=== PATIENT | male | born 1945 | race Caucasian/White ===

== ENCOUNTER → 2021-05-09 | Outpatient (CLI) | payer MEDICARE ==
--- NOTE | 2021-05-10 05:14 | MR ---
EXAMINATION TYPE: MR brain wo/w con DATE OF EXAM: 05/09/2021 COMPARISON: 03/03/2017 HISTORY: Vision change right eye, AMS, vertigo. CONTRAST: Standard multiplanar, multisequence MRI departmental protocol images were obtained without contrast a nd with 8 mL intravenous Gadavist gadolinium contrast. There is moderate enlargement of the ventricles. There is significant thinning of the corpus callosum . Brainstem is intact. Sella turcica is intact. There is some cerebral cortical atrophy. There is no evidence of retro-orbital mass. There is no evidence of posterior fossa mass. There is so me mucosal thickening in the maxillary and ethmoid and sphenoid sinuses. There is mild linear increas ed signal around the lateral ventricles in the white matter. There is no pathologic enhancement. There is normal enhancement of the venous sinuses. There are smal l scattered foci of increased signal in the periventricular white matter on the FLAIR and T2 images. IMPRESSION: Moderate hydrocephalus without change. Bilateral white matter changes that could relate to microvascu lar ischemia. There is not a significant edema in the white matter adjacent to the ventricles to sugg est obstruction. Mild cerebral atrophy. Pansinusitis.
== END | disposition home or self-care (01) ==
LOC: RADMRIMAIN 20:46
PROVIDERS: ATTEND Nurse Practitioner Family
DX: G91.9 Hydrocephalus, unspecified (principal); G31.89 Other specified degenerative diseases of nervous system; J32.4 Chronic pansinusitis
CPT/HCPCS: 70553; A9585

== ENCOUNTER → 2021-05-16 | Outpatient (CLI) | payer MEDICARE ==
--- NOTE | 2021-05-16 12:35 | ECHOF ---
Referral Reason:H53.9 vision changes, R42 dizziness, R01.1 murmur MEASUREMENTS -------- HEIGHT: 175.3 cm WEIGHT: 77.1 kg BP: RVIDd: 2.9 cm (< 3.3) IVSd: 1.0 cm (0.6 - 1.1) LVIDd: 4.4 cm (3.9 - 5.3) LVPWd: 1.2 cm (0.6 - 1.1) IVSs: 1.4 cm LVIDs: 3.1 cm LVPWs: 1.4 cm LA Diam: 3.1 cm (2.7 - 3.8) Ao Diam: 3.2 cm (2.0 - 3.7) AV Cusp: 1.7 cm (1.5 - 2.6) MV EXCURSION: 18.742 mm (> 18.000) MV EF SLOPE: 112 mm/s (70 - 150) EPSS: 0.2 cm MV E Jorge: 0.53 m/s MV DecT: 324 ms MV A Jorge: 0.83 m/s MV E/A Ratio: 0.63 RAP: 5.00 mmHg RVSP: 24.55 mmHg FINDINGS -------- Sinus rhythm. This was a technically good study. LV size, wall thickness and systolic function are normal, with an EF greater than 55%. The left zac tricular size is normal. The right ventricle is normal in size. The left atrial size is normal. The right atrial size is normal. There is mild aortic valve sclerosis. There is no evidence of aortic regurgitation. Mild mitral regurgitation is present. Mild tricuspid regurgitation present. Right ventricular systolic pressure is normal at < 35 mmHg. There is no pulmonic regurgitation present. There is no pericardial effusion. CONCLUSIONS -------- 1. LV size, wall thickness and systolic function are normal, with an EF greater than 55%. 2. The left ventricular size is normal. 3. The right ventricle is normal in size. 4. The left atrial size is normal. 5. The right atrial size is normal. 6. There is mild aortic valve sclerosis. 7. Mild mitral regurgitation is present. 8. Mild tricuspid regurgitation present. 9. There is no pericardial effusion. RETAIL PL[employer]NER: Shell Benjamin RDCS
--- NOTE | 2021-05-16 13:03 | US ---
EXAMINATION TYPE: US carotid duplex BILAT DATE OF EXAM: 05/16/2021 COMPARISON: NONE CLINICAL HISTORY: H53.9 vision changes, R42 dizziness, R01.1 murmur. Dizziness EXAM MEASUREMENTS: RIGHT: Peak Systolic Velocity (PSV) cm/sec ----- Right CCA: 109.9 ----- Right ICA: 102.1 ----- Right ECA: 175.7 ICA/CCA ratio: 0.9 RIGHT: End Diastole cm/sec ----- Right CCA: 17.7 ----- Right ICA: 21.6 ----- Right ECA: 19.9 LEFT: Peak Systolic Velocity (PSV) cm/sec ----- Left CCA: 85.2 ----- Left ICA: 108.4 ----- Left ECA: 158.9 ICA/CCA ratio: 1.3 LEFT: End Diastole cm/sec ----- Left CCA: 22.7 ----- Left ICA: 27.0 ----- Left ECA: 24.8 VERTEBRALS (direction of flow): Right Vertebral: Antegrade Left Vertebral: Antegrade Rhythm: Normal No significant stenosis grayscale, color Doppler, spectral Doppler imaging performed of the carotid a rteries. Waveform analysis does not show significant stenosis of the internal carotid arteries. IMPRESSION: No hemodynamic significant stenosis of the proximal internal carotid arteries by Doppler criteria, an indirect measurement of carotid stenosis Criteria for Assigning % of Stenosis / Diameter reduction (Estimation based on the indirect measurements of the internal carotid artery velocities (ICA PSV). 1. Normal (no stenosis)=ICA PSV < 125 cm/s: ratio < 2.0: ICA EDV<40 cm/s. 2. Less than 50% stenosis=ICA PSV < 125 cm/s: ratio < 2.0: ICA EDV<40 cm/s. 3. 50 to 69% stenosis=ICA PSV of 125 to 230 cm/s: ration 2.0 ? 4.0: ICA EDV 40-100 cm/s. 4. Greater than 70% stenosis to near occlusion= ICA PSV > 230 cm/s: ratio > 4.0: ICA EDV > 100 cm/s. 5. Near occlusion= ICA PSV velocities may be low or undetectable: variable ratio and ICA EDV. 6. Total occlusion=unable to detect flow.
== END | disposition home or self-care (01) ==
LOC: RADECHMAIN 11:39
PROVIDERS: ATTEND Family Medicine
DX: I08.3 Combined rheumatic disorders of mitral, aortic and tricuspid valves (principal); R42 Dizziness and giddiness; H53.9 Unspecified visual disturbance
CPT/HCPCS: 93306; 93880

== ENCOUNTER → 2021-12-31 | Outpatient (CLI) | payer MEDICARE ==
--- NOTE | 2021-12-31 10:30 | BD ---
EXAMINATION TYPE: Axial Bone Density DATE OF EXAM: 12/31/2021 COMPARISON: FIRST DEXA AT [facility] CLINICAL HISTORY: 76 years year old Male. ICD-10 CODE: M85.88 OTHER DISORDER OF BONE Height: 68IN Weight: 177LB FRAX RISK QUESTIONS: Secondary Osteoporosis: RISK FACTORS HISTORY OF: Active: YES Diet low in dairy products/other sources of calcium: YES MEDICATIONS: Additional Medications: BP MED, CHOLESTEROL MED, CALCIUM Additional History: EXAM MEASUREMENTS: Bone mineral densitometry was performed using the [employer] System. Bone mineral density as measured about the Lumbar spine is: ----- L1-L4(G/cm2): 1.328 T Score Values are as follows: ----- L1: 1.4 ----- L2: 0.9 ----- L3: 1.6 ----- L4: 0.9 ----- L1-L4: 1.2 FIRST DEXA AT [facility] Bone mineral density about the R hip (g/cm2): 1.068 Bone mineral density about the L hip (g/cm2): 1.072 T Score values are as follows: -----R Neck: -0.5 -----L Neck: -0.4 -----R Total: 0.5 -----L Total: 0.5 FRAX%s: The graph provided illustrates a 5.5% chance for a major osteoporotic fx and a 1.2% chance fo r the hips probability for fx in 10 years time. IMPRESSION: Normal (Values between +1 and -1 indicate normal bone mass). Consider repeating this study in 5 year s or sooner if there is some new clinical indication. NOTE: T-SCORE=SD OF THE YOUNG ADULT MEAN.
== END | disposition home or self-care (01) ==
LOC: RADBDWWP 09:53
PROVIDERS: ATTEND Family Medicine
DX: M85.88 Other specified disorders of bone density and structure, other site (principal)
CPT/HCPCS: 77080

== ENCOUNTER 2024-04-06 08:24 | Day surgery (SDC) | payer MEDICARE ==
[2024-04-02 14:39] VITALS: BMI 25.1
[2024-04-06 09:05] VITALS: TEMP 97.6
[2024-04-06] MEDS: IV FLUID CONTINUATION 1,000 ML IV ONE (09:05)
[2024-04-06] MEDS: LIDOCAINE 1% (10MG/ML) FOR IV START INTRADERMA PRN (09:05)
[2024-04-06] MEDS: LACTATED RINGERS 1,000 ML IV SCH (09:05)
[2024-04-06] MEDS ORDERED: PROPOFOL 10 MG/ML 20 ML VIAL IV ONE (10:12)
--- NOTE | 2024-04-06 10:34 | P.PCN ---
Date of Procedure: 04/06/24 Procedure(s) Performed: BRIEF HISTORY: Patient is a 78-year-old pleasant white male scheduled for an elective colonoscopy as a part of screening for colon cancer/positive Cologuard. PROCEDURE PERFORMED: Colonoscopy with snare polypectomy. PREOPERATIVE DIAGNOSIS: Screening for colon cancer/positive Cologuard. IV sedation per Anesthesia. PROCEDURE: After informed consent was obtained, the patient, was brought into the endoscopy unit. IV sedation was administered by Anesthesia under continuous monitoring. Digital rectal examination was normal. Initially the Olympus CF-160 flexible video colonoscope was then inserted in the rectum, gradually advanced into the cecum without any difficulty. Careful examination was performed as the scope was gradually being withdrawn. Ileocecal valve and the appendiceal orifice were visualized and appeared normal. Prep was excellent. Mucosa of the cecum had a 1 cm sessile polyp removed by cold snare polypectomy. In the ascending colon there was a 5 mm polyp removed by cold snare polypectomy. Rest of the, ascending colon, transverse colon, descending colon, sigmoid colon, and rectum appeared normal. Retroflexion was performed in the rectum and no lesions were seen. The patient tolerated the procedure well. IMPRESSION: 1 cm cecal polyp status post cold snare polypectomy' 5 mm ascending colon polyp status post cold snare polypectomy Rest of the colon appeared normal RECOMMENDATIONS: Findings of this examination were discussed with the patient a s well as his family.. He was advised to follow-up with the biopsy results. If the biopsy reveals adenoma he can have repeat colonoscopy in 3 years.
[2024-04-06 10:52] VITALS: BP 173/87; PULSE 71; RESP 14
== END 2024-04-06 11:20 | disposition home or self-care (01) ==
LOC: ORWHC2ENDO 08:24
PROVIDERS: ATTEND Internal Medicine Gastroenterology
DX: R19.5 Other fecal abnormalities (principal); I10 Essential (primary) hypertension; E78.5 Hyperlipidemia, unspecified; N40.0 Benign prostatic hyperplasia without lower urinary tract symptoms; Z79.899 Other long term (current) drug therapy; Z98.42 Cataract extraction status, left eye; Z98.41 Cataract extraction status, right eye
CPT/HCPCS: 45385; J2704; 88305